=== PATIENT | male | born 1965 | race Caucasian/White ===

== ENCOUNTER 2018-01-13 08:00 | Outpatient (CLI) | payer BC ==
--- NOTE | 2018-01-13 17:44 | KCIC ---
EXAM: MRI Left WRIST DATE: 01/13/2018 4:15 PM CLINICAL HISTORY: Left wrist pain, pain and swelling with lump/palpable abnormality for one month COMPARISON: None. TECHNIQUE: Multiplanar multisequence MR imaging of the left wrist was performed without IV contrast. FINDINGS: Fiducial markers are seen bracketing the site of palpable abnormality overlying the distal aspect of the ulnar shaft. Immediately subjacent to the fiducial markers there is a complex multiloculated cystic structure/ganglion overlying the distal ulnar shaft. This appears to arise from the TFCC at the volar margin. This measures 2.2 x 0.7 x 3.2 cm. There is a full-thickness radial sided provided history of the TFC disc proper. Otherwise the radial, ulnar styloid and ulnar foveal attachments are intact. The dorsal and volar distal radioulnar ligaments are intact. The triangular ligament is not well visualized. T1 marrow signal is preserved. No evidence of acute fracture. The scapholunate and lunotriquetral ligaments are intact. The extrinsic ligaments are grossly intact although limited in assessment. Moderate thickening and increased signal of the extensor carpi ulnaris at and just beyond the level of the TFCC, moderate tendinosis. The visualized flexor and extensor tendons are otherwise normal in signal and morphology without significant tenosynovitis. There is no abnormal bowing of the flexor retinaculum. The median nerve is normal in signal and morphology. The ulnar nerve is also normal in signal and morphology. Visualized muscle bulk is normal. No significant fatty atrophy. The distal radial ulnar joint, radiocarpal joint and midcarpal joint are grossly preserved without definite full-thickness cartilage defects. IMPRESSION: 1. The palpable abnormality over the ulnar aspect of the wrist corresponds to a multiloculated cystic structure/ganglion which appears to arise from the volar aspect of the TFCC. 2. 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 Electronically signed by: Luis Araujo MD (01/13/2018 5:40 PM) [facility] [id number]
== END 2018-01-13 12:00 | disposition home or self-care (01) ==
LOC: KCIC MRI 08:00
PROVIDERS: ATTEND Plastic Surgery
DX: S63.592A Other specified sprain of left wrist, initial encounter (principal); M77.8 Other enthesopathies, not elsewhere classified; X58.XXXA Exposure to other specified factors, initial encounter; Y93.89 Activity, other specified; Y92.89 Other specified places as the place of occurrence of the external cause; Y99.8 Other external cause status
CPT/HCPCS: 73221